=== PATIENT | female | born 1965 | race Caucasian/White ===

== ENCOUNTER 2016-09-07 11:11 | Day surgery (SDC) | payer OTHER ==
[~2016-09-07] VITALS: Ht 154.9 cm; Wt 77.0 kg
[~2016-09-07 11:11] MED LIST: ALBUTEROL0.83 MG/ML IH; ATACAND16 MG PO; ATORVASTATIN; CARAFATE1 GM PO; CELEBREX100 MG PO; GEMCOR600 MG PO; GLUCOSAMINE & C1 CAP PO; NEXIUM 40MG40 MG PEG; OMEGA 31000 MG PO; PHENERGAN W/CO120 ML PO; REGLAN 10MG10 MG/TAB PO; TENORMIN25 MG PO; TOPAMAX100 MG PO; TYLENOL/CODEINE1 ML PO; ULTRAM50 MG PO; ZITHROMAX Z PA250 MG PO; ZOCOR20 MG PO
[2016-09-07 11:50] VITALS: BP 144/86; PULSE 69; TEMP 97.9
[2016-09-07] MEDS ORDERED: GLUCOTROL10 MG PO (11:54)
[2016-09-07] MEDS ORDERED: MULTI VITAMINS1 TAB PO (11:55)
[2016-09-07] MEDS ORDERED: COZAAR 50MG50 MG/TAB PO (11:55)
[2016-09-07] MEDS ORDERED: [UNRECOGNIZED DRUG - OTHER] PO (11:57)
[2016-09-07 15:44] VITALS: TEMP 98.7
[2016-09-07 16:16] VITALS: BP 135/77; PULSE 74
[2016-09-07 16:30] VITALS: BP 138/78; PULSE 69
[2016-09-07 17:00] VITALS: BP 141/84; PULSE 79
[2016-09-07] MEDS ORDERED: DEMEROL 50M50 MG/TAB PO (17:16)
== END 2016-09-07 17:10 | disposition home or self-care (01) ==
LOC: SDCO 11:11
DX: C77.9 Secondary and unspecified malignant neoplasm of lymph node, unspecified (principal); Z85.820 Personal history of malignant melanoma of skin; I10 Essential (primary) hypertension; E11.9 Type 2 diabetes mellitus without complications; Z80.1 Family history of malignant neoplasm of trachea, bronchus and lung; Z80.3 Family history of malignant neoplasm of breast; E78.5 Hyperlipidemia, unspecified; K21.9 Gastro-esophageal reflux disease without esophagitis; M19.90 Unspecified osteoarthritis, unspecified site; R07.9 Chest pain, unspecified; R05 Cough; R06.02 Shortness of breath; M79.89 Other specified soft tissue disorders; Z91.14 Patient's other noncompliance with medication regimen
CPT/HCPCS: J0690; J1100; J2405; J2704; J3010; J7030

== ENCOUNTER 2016-12-01 14:00 | Outpatient (RCR) | payer OTHER ==
[~2016-12-01 14:00] MED LIST changes: +COZAAR 50MG50 MG/TAB PO; +DEMEROL 50M50 MG/TAB PO; +GLUCOTROL10 MG PO; +MULTI VITAMINS1 TAB PO; +[UNRECOGNIZED DRUG - OTHER] PO
[2017-01-06] MEDS ORDERED: OMEGA-3 1000 MG1 CAP PO (09:52)
[2017-01-06] MEDS ORDERED: GLUCOPHAGE500 MG/TAB PO (09:52)
== END 2017-01-11 09:07 ==
LOC: WSPT 14:00
DX: C43.9 Malignant melanoma of skin, unspecified (principal)

== ENCOUNTER → 2017-01-10 | Outpatient (CLI) | payer OTHER ==
[2017-01-10] VITALS (12 sets, daily range): BP systolic 133–190; BP diastolic 80–108; PULSE 61–70
[~2017-01-10] VITALS: Ht 154.9 cm; Wt 75.5 kg
[~2017-01-10] MED LIST changes: +GLUCOPHAGE500 MG/TAB PO; +OMEGA-3 1000 MG1 CAP PO
[2017-01-10 10:20] LABS: PROTHROMBIN TIME 10.9 SECONDS (9.7-12.8)
== END ==
LOC: COL.RAD 09:46
PROVIDERS: Physician Assistant
DX: C43.9 Malignant melanoma of skin, unspecified (principal); L81.9 Disorder of pigmentation, unspecified; R74.0 Nonspecific elevation of levels of transaminase and lactic acid dehydrogenase [LDH]; Z90.49 Acquired absence of other specified parts of digestive tract
CPT/HCPCS: J2250

== ENCOUNTER 2017-02-18 13:00 | Outpatient (RCR) | payer OTHER ==
[2017-01-24 10:47] VITALS: BP 168/86; PULSE 62; TEMP 98.2
[2017-01-24 11:02] LABS: ADD PATHOLOGY DIFF REVIEW NO
[2017-01-24 11:03] LABS: HEMATOCRIT 39.9 % (37.0-47.0); HEMOGLOBIN 13.9 g/dl (12.5-16.0); MEAN CELL VOLUME 91 fl (80.0-100.0); MEAN CORPUSCULAR HEMOGLOBIN 32 pg (27.0-31.0); MEAN CORPUSCULAR HGB CONC 35 g/dl (33.0-37.0); PLATELET COUNT 241 K/mm3 (130-400); RED BLOOD COUNT 4.39 M/mm3 (4.10-5.30); WHITE BLOOD COUNT 4.9 K/mm3 (4.8-10.8)
[2017-01-24 11:35] LABS: BILIRUBIN,TOTAL 0.6 mg/dL (0.0-1.0); CREATININE, serum 0.6 mg/dL (0.52-1.25); POTASSIUM 3.5 mmol/L (3.4-5.0); TOTAL PROTEIN 7.5 gm/dL (6.4-8.2)
[2017-01-24 11:38] LABS: BAND 7 % (0-10); EOSINOPHIL 1 % (0-4); LYMPHOCYTE 42 % (20.0-51.0); NEUTROPHILS 47 % (42.0-75.2); PLATELET ESTIMATE NORMAL (NORMAL); TOTAL CELLS COUNTED 100
[2017-01-25 10:03] VITALS: BP 154/87; PULSE 70; TEMP 97.7
[2017-01-28 13:02] VITALS: BP 137/84; PULSE 69; TEMP 98.2
[2017-02-04 13:48] VITALS: BP 120/77; PULSE 70; TEMP 97.7
[2017-02-11 13:28] LABS: ADD PATHOLOGY DIFF REVIEW NO
[2017-02-11 13:30] VITALS: BP 147/90; PULSE 62; TEMP 98
[2017-02-11 13:33] LABS: HEMATOCRIT 42.4 % (37.0-47.0); HEMOGLOBIN 14.3 g/dl (12.5-16.0); MEAN CELL VOLUME 92 fl (80.0-100.0); MEAN CORPUSCULAR HEMOGLOBIN 31 pg (27.0-31.0); MEAN CORPUSCULAR HGB CONC 34 g/dl (33.0-37.0); PLATELET COUNT 188 K/mm3 (130-400); RED BLOOD COUNT 4.62 M/mm3 (4.10-5.30)
[2017-02-11 13:42] LABS: ADJUSTED CALCIUM 9.3 mg/dL (8.4-10.2); BILIRUBIN,TOTAL 0.6 mg/dL (0.0-1.0); CALCIUM 9.3 mg/dL (8.4-10.2); CREATININE, serum 0.72 mg/dL (0.52-1.25); POTASSIUM 4.4 mmol/L (3.4-5.0); TOTAL PROTEIN 7.4 gm/dL (6.4-8.2)
[2017-02-11 13:43] LABS: WHITE BLOOD COUNT 1.6 K/mm3 (4.8-10.8)
[2017-02-11 14:13] LABS: BAND 24 % (0-10); LYMPHOCYTE 54 % (20.0-51.0); NEUTROPHILS 14 % (42.0-75.2); PLATELET ESTIMATE NORMAL (NORMAL); TOTAL CELLS COUNTED 50
[~2017-02-18] VITALS: Ht 154.9 cm; Wt 72.5 kg
== END 2017-02-18 16:27 | disposition home or self-care (01) ==
LOC: EUO 13:00
PROVIDERS: Internal Medicine
DX: C43.61 Malignant melanoma of right upper limb, including shoulder (principal)
CPT/HCPCS: C1751; J1644

== ENCOUNTER → 2017-07-06 | Outpatient (CLI) | payer OTHER | LOC: COL.RAD 08:08 | DX: C43.61 Malignant melanoma of right upper limb, including shoulder (principal); R51 Headache; I67.82 Cerebral ischemia | CPT/HCPCS: A9585 ==